=== PATIENT | male | born 1955 | race Caucasian/White ===

== ENCOUNTER → 2016-06-20 | Outpatient (CLI) | payer OTHER ==
[~2016-06-20] MED LIST: 00186-0372-20 IH; AFRIN NASAL SPR15 M1 NS; ATROVENT INHALE14 GM; CELEXA10 MG PO; DARVOCET-N-101 UDTAB PO; DYMISTA1 SPR NS; FLEXERIL 1010 MG/TAB PO; GLUCOPHAGE1000 MG PO; LOFIBRA160 MG PO; LORTAB 7.5/5001 TAB PO; OMEGA 31000 MG PO; PRILOSEC10 MG PO; SINGULAIR 110 MG/TAB PO; ULTRAM 50MG TAB50 MG PO; ZYRTEC5 MG PO
== END ==
LOC: COL.RAD 13:27
DX: D35.2 Benign neoplasm of pituitary gland (principal)
CPT/HCPCS: A9585

== ENCOUNTER 2016-12-27 08:55 | Outpatient (RCR) | payer OTHER | END 2017-01-29 14:21 | disposition still patient (30) | LOC: WSOH 08:55 | DX: M25.512 Pain in left shoulder (principal); M25.612 Stiffness of left shoulder, not elsewhere classified; Z88.1 Allergy status to other antibiotic agents; Z79.84 Long term (current) use of oral hypoglycemic drugs | CPT/HCPCS: J1030 ==

== ENCOUNTER 2017-03-13 12:00 | Outpatient (RCR) | payer OTHER | END 2017-06-11 | disposition home or self-care (01) | LOC: WSOH | DX: M67.814 Other specified disorders of tendon, left shoulder (principal); R21 Rash and other nonspecific skin eruption; Z98.890 Other specified postprocedural states; Z88.1 Allergy status to other antibiotic agents; Z79.84 Long term (current) use of oral hypoglycemic drugs ==

== ENCOUNTER 2018-04-15 08:00 | Outpatient (RCR) | payer OTHER | END 2018-07-03 | disposition home or self-care (01) | LOC: WSOH | DX: M25.562 Pain in left knee (principal); W18.42XA Slipping, tripping and stumbling without falling due to stepping into hole or opening, initial encounter; Y93.01 Activity, walking, marching and hiking; Y92.59 Other trade areas as the place of occurrence of the external cause; Y99.0 Civilian activity done for income or pay; Z79.84 Long term (current) use of oral hypoglycemic drugs; Z79.899 Other long term (current) drug therapy ==

== ENCOUNTER 2018-09-06 13:23 | Outpatient (RCR) | payer OTHER | END 2018-12-05 | disposition home or self-care (01) | LOC: WSOH | DX: M25.562 Pain in left knee (principal); M94.262 Chondromalacia, left knee; R26.2 Difficulty in walking, not elsewhere classified; Y92.9 Unspecified place or not applicable; Y99.0 Civilian activity done for income or pay; I10 Essential (primary) hypertension; E11.9 Type 2 diabetes mellitus without complications; Z79.84 Long term (current) use of oral hypoglycemic drugs; F41.9 Anxiety disorder, unspecified; J45.909 Unspecified asthma, uncomplicated; Z79.899 Other long term (current) drug therapy ==

== ENCOUNTER 2018-09-06 14:32 | Outpatient (RCR) | payer OTHER | END 2018-10-02 | disposition home or self-care (01) | LOC: WSOH | DX: S46.811D Strain of other muscles, fascia and tendons at shoulder and upper arm level, right arm, subsequent encounter (principal); M25.562 Pain in left knee; M94.262 Chondromalacia, left knee; Y92.59 Other trade areas as the place of occurrence of the external cause; Y93.01 Activity, walking, marching and hiking; Y99.0 Civilian activity done for income or pay; I10 Essential (primary) hypertension; E11.9 Type 2 diabetes mellitus without complications; Z79.84 Long term (current) use of oral hypoglycemic drugs; Z79.899 Other long term (current) drug therapy; J45.909 Unspecified asthma, uncomplicated; F41.9 Anxiety disorder, unspecified ==

== ENCOUNTER → 2020-01-19 | Outpatient (CLI) | payer OTHER | LOC: COL.RAD 01-08 10:30 | DX: I72.8 Aneurysm of other specified arteries (principal); K76.0 Fatty (change of) liver, not elsewhere classified; K57.30 Diverticulosis of large intestine without perforation or abscess without bleeding | CPT/HCPCS: Q9967 ==

== ENCOUNTER → 2021-05-16 | Outpatient (CLI) | payer MEDICARE | LOC: ZCOL.LAB 16:51 | DX: H60.91 Unspecified otitis externa, right ear (principal) ==

== ENCOUNTER → 2021-08-24 | Outpatient (CLI) | payer MEDICARE ==
[~2021-08-24] VITALS: Ht 180.3 cm; Wt 110.3 kg
[~2021-08-24] MED LIST changes: +COZAAR 25MG25 MG/TAB PO; +FLOMAX 0.40.4 MG/CAP PO; +FORT1000TA PO; +GLUCOTROL XL2.5 MG; +MOBIC15 MG; +PRILOSEC 20MG20 MG PO; +PROVENTIL0.09 MG/A1 IH; +REMERON45 MG; +VICTOZA6 MG/ML SQ; +ZOCOR5 MG; +ZOLOFT 50MG50 MG PO
[2021-08-24 12:49] VITALS: BP 125/76; PULSE 65; TEMP 98.2
[2021-08-24 15:12] VITALS: BP 150/83; PULSE 90
[2021-08-24 15:30] VITALS: BP 160/79; PULSE 84
[2021-08-24 15:45] VITALS: BP 127/75; PULSE 72
== END ==
LOC: COL.RAD 06:45
DX: D35.2 Benign neoplasm of pituitary gland (principal)
CPT/HCPCS: A9575; J2704

== ENCOUNTER → 2023-03-08 | Outpatient (CLI) | payer MEDICARE ==
[~2023-03-08] MED LIST changes: -GLUCOTROL XL2.5 MG; +GLUCOTROL XL2.5 MG PO; +KLONOPIN 0.5MG0.5 MG PO; -MOBIC15 MG; +MOBIC15 MG PO; +MULTIPLE VITAMI1 TA5 PO; +OMEGA-3 1000 MG1 CAP PO; +RESTORIL30 MG PO; +ZYRTEC 10MG10 MG PO
== END ==
LOC: COL.RAD 09:30
DX: M84.374G Stress fracture, right foot, subsequent encounter for fracture with delayed healing (principal); M79.671 Pain in right foot
CPT/HCPCS: J0665; J3301; Q9967

== ENCOUNTER → 2023-10-23 | Outpatient (CLI) | payer MEDICARE ==
[~2023-10-23] MED LIST changes: +Iohexol 300 - 10 ML VIAL IV ONE; +Triamcinolone 40 MG/ML 1 ML VIAL IJ ONE
== END ==
LOC: COL.RAD 12:11
DX: M84.374G Stress fracture, right foot, subsequent encounter for fracture with delayed healing (principal)
CPT/HCPCS: J0665; J3301; Q9967